=== PATIENT | female | born 1950 | race Two or more races ===

== ENCOUNTER 2017-11-11 15:30 | Emergency (ER) | payer MEDICARE, OTHER ==
[~2017-11-11] VITALS: Ht 160 cm; Wt 67.1 kg
[~2017-11-11 15:30] MED LIST: ABILIFY5 MG PO; ACTONEL150 MG PO; CREON DR 3,0001 EACH PO; CYMBALTA30 MG PO; DETROL2 MG PO; IBUPROFEN200 M2 PO; NASONEX17 GM NS; NEXIUM40 MG PO; PAMELOR10 MG PO; PREMARIN0.3 MG PO; SIMVASTATIN20 MG PO; VITAMIN B-12100 MCG PO
[2017-11-11] MEDS ORDERED: BACITRACIN15 GM TOPIC (16:03)
[2017-11-11] MEDS ORDERED: CEPHALEXIN500 MG ORAL (16:03)
[2017-11-11] MEDS ORDERED: DIPHENHYDRAMINE25 M1 ORAL (16:03)
[2017-11-11 16:10] VITALS: BP 101/65
--- NOTE | 2017-11-11 17:31 | Emergency Room Report ---
History of Present Illness General Chief Complaint: Skin Rash/Abscess Source: Patient Present Illness HPI 67-year-old female presents ED for evaluation. States that they were insect bites on her left elbow that of gotten progressively worse. Started as 2 small bumps which have gotten larger and more red over the last 2 days. Very itchy. Denies pain. Denies fevers or chills. Denies any discharge. No other aggravating relieving factors. Denies any other associated symptoms Allergies: Coded Allergies: LATEX (Verified Allergy, Unknown, 04/26/12) Patient History Past Medical History: psych hx, other - IBS Social History: Denies: smoking, alcohol use, drug use Last Menstrual Period: na Now: No Immunizations: UTD Reviewed Nursing Documentation: PMH: Agreed; PSxH: Agreed Nursing Documentation-PMH Past Medical History: No History, Except For Hx Cardiac Problems: No Hx Cancer: No Hx Gastrointestinal Problems: Yes - IBS History Of Psychiatric Problem: Yes - depression Hx Neurological Problems: Yes - arthritis, TMJ Review of Systems All Other Systems: negative except mentioned in HPI Physical Exam Vital Signs Date Time Temp Pulse Resp B/P (MAP) Pulse Ox O2 Delivery O2 Flow Rate FiO2 11/11/17 15:35 97.9 77 18 101/65 98 Room Air 97.9 Sp02 EP Interpretation: reviewed, normal General Appearance: no apparent distress, alert, GCS 15, non-toxic Head: normocephalic Eyes: bilateral eye normal inspection, bilateral eye PERRL ENT: normal ENT inspection Neck: normal inspection Respiratory: normal inspection Cardiovascular #1: normal inspection Gastrointestinal: normal inspection Rectal: deferred Genitourinary: no CVA tenderness Musculoskeletal: back normal, gait/station normal, normal range of motion, non- tender Neurologic: alert, oriented x3, responsive, motor strength/tone normal, sensory intact, speech normal Psychiatric: normal inspection Skin: other - 3x3cn area of erythema/induration to L elbow. full ROM noted. no fluctuance/discharge Lymphatic: normal inspection Medical Decision Making Diagnostic Impression: Primary Impression: Insect bite Qualified Codes: W57.XXXA - Bitten or stung by nonvenomous insect and other nonvenomous arthropods, initial encounter ER Course Hospital Course 67-year-old female presents to ED with redness, swelling to L elbow Differential diagnoses include: Cellulitis, dermatitis, insect bite, abscess Clinical course Patient placed on stretcher. After initial history, physical exam reveals an elderly female in no acute distress. On exam there is a site for mild erythema and induration to the L elbow. There is no fluctuance. There is no tenderness. Full range of motion is noted in the L elbow and there is no concern for any signs of infection to the joint. Discussed findings with patient. We will discharge on Keflex, Benadryl, bacitracin. Warm compresses. Close follow-up with PMD Diagnosis - insect bite stable and discharged to home with prescription for benedryl, bactrim, Keflex. Instructed to followup with PMD. Instructed return to ED if symptoms recur or worsen Last Vital Signs Date Time Temp Pulse Resp B/P (MAP) Pulse Ox O2 Delivery O2 Flow Rate FiO2 11/11/17 16:10 97.9 78 18 101/65 98 Room Air 97.9 Status: improved Disposition: HOME, SELF-CARE Condition: Stable Scripts Diphenhydramine Hcl* (DIPHENHYDRAMINE HCL*) 25 Mg Capsule 25 MG ORAL Q6H PRN for Itching, #30 CAP 0 Refills Prov: Gabriel Lion MD 11/11/17 Bacitracin (Bacitracin) 28.4 Gm Oint...g. 1 APPLIC TOPIC THREE TIMES A DAY, #28.4 GM Prov: Gabriel Lion MD 11/11/17 Cephalexin* (KEFLEX*) 500 Mg Capsule 500 MG ORAL EVERY 6 HOURS for 7 Days, CAP Prov: Gabriel Lion MD 11/11/17 Patient Instructions: Insect Bite, [id number] Gabriel Lion MD Nov 11, 2017 17:31
== END 2017-11-11 16:25 | disposition home or self-care (01) ==
LOC: EMR 15:59
DX: S50.362A Insect bite (nonvenomous) of left elbow, initial encounter (principal); W57.XXXA Bitten or stung by nonvenomous insect and other nonvenomous arthropods, initial encounter; Y92.9 Unspecified place or not applicable; F32.9 Major depressive disorder, single episode, unspecified; Z91.040 Latex allergy status
CPT/HCPCS: 99283

== ENCOUNTER 2017-12-05 19:27 | Emergency (ER) | payer MEDICARE, OTHER ==
[~2017-12-05] VITALS: Ht 162.6 cm; Wt 67.1 kg
[~2017-12-05 19:27] MED LIST changes: +BACITRACIN15 GM TOPIC; +CEPHALEXIN500 MG ORAL; +DIPHENHYDRAMINE25 M1 ORAL
[2017-12-05 19:50] VITALS: BP 103/65
[2017-12-05] MEDS ORDERED: BACITRACIN-P28.35 GM TP (19:56)
[2017-12-05] MEDS ORDERED: HYDROCORTISONE-30 GM TOPIC (19:56)
--- NOTE | 2017-12-05 19:57 | Emergency Room Report ---
History of Present Illness General Chief Complaint: Skin Rash/Abscess Source: Patient Present Illness HPI 67-year-old female patient presents ER complaining of bug bite on her right arm. Reports has been present for the past 2 days. Reports it is extremely pruritic. Denies taking medications. Reports she thinks she was bit by a mosquito. Reports history of bug bites in the past, previously seen in ER for bug bite on left forearm a few weeks ago, states that bug bite was worse and painful. Denies fever, chest pain, shortness of breath, vomiting. Denies other acute symptoms. Allergies: Coded Allergies: LATEX (Verified Allergy, Unknown, 04/26/12) Patient History Past Medical History: see triage record Last Menstrual Period: n/a Reviewed Nursing Documentation: PMH: Agreed; PSxH: Agreed Nursing Documentation-PMH Hx Cardiac Problems: Yes - high cholesterol Hx Cancer: No Hx Gastrointestinal Problems: Yes - IBS Hx Neurological Problems: Yes - arthritis, TMJ Review of Systems All Other Systems: negative except mentioned in HPI Physical Exam Vital Signs Date Time Temp Pulse Resp B/P (MAP) Pulse Ox O2 Delivery O2 Flow Rate FiO2 12/05/17 19:32 98.0 80 16 103/65 96 Room Air 98.1 Sp02 EP Interpretation: reviewed, normal General Appearance: well appearing, no apparent distress, alert, GCS 15, non- toxic Head: normocephalic, atraumatic Eyes: bilateral eye normal inspection, bilateral eye PERRL ENT: hearing grossly normal, normal pharynx, no angioedema, normal voice, uvula midline, moist mucus membranes Neck: full range of motion Respiratory: lungs clear, normal breath sounds, no rhonchi, no respiratory distress, no accessory muscle use, no wheezing, speaking full sentences Cardiovascular #1: regular rate, rhythm, no edema Musculoskeletal: back normal, digits/nails normal, gait/station normal, normal range of motion, non-tender Neurologic: alert, oriented x3, responsive, motor strength/tone normal, sensory intact Psychiatric: mood/affect normal Skin: other - right lateral arm proximal to elbow: 1cm erythematous papule with overlying urticaria, no surround erythema or edema, no TTP, no warmth to touch, no central clearing, no bleeding, no induration or fluctuance, no palpable mass Lymphatic: no adenopathy Medical Decision Making PA Attestation Dr. Davison is my supervising Physician whom patient management has been discussed with. Diagnostic Impression: Primary Impression: Insect bite ER Course Pt. presents to the ED c/o bug bite. Ddx considered but are not limited to atopic dermatitis, bug bite, urticaria, allergic reaction. Vital signs: are WNL, pt. is afebrile ER COURSE: Physical exam consistent with localized inflammation secondary to likely bug bite. no induration or fluctuance, no surrounding erythema or edema, low suspicion for abscess or cellulitis, do not believe patient requires oral abx at this time. Do not scratch, apply cool compresses to affected area. Take Claritin during the day and Benadryl at night for itching symptoms. Followup with PCP and request referral to derm. ER precautions given. DISCHARGE: -Rx given for hydrocortisone cream. Do not apply to face or skin creases. -Rx given for Bacitracin At this time pt. is stable for d/c to home. Patient resting comfortably, in no acute distress, nontoxic appearing. Care plan and follow up instructions have been discussed with the patient prior to discharge. Patient provided with printed patient care instructions, and any necessary prescriptions. Patient instructed to follow-up with primary care provider in 3 - 5 days. Patient questions asked and answered. Patient reports understanding and agreement to treatment plan. ER precautions given. Patient instructed to return to ER immediately for any new or worsening of symptoms including but not limited to increasing SOB, persistent fever. - Please note that this Emergency Department Report was dictated using [employer] pathology associate professor technology software, occasionally this can lead to erroneous entry secondary to interpretation by the dictation equipment. Last Vital Signs Date Time Temp Pulse Resp B/P (MAP) Pulse Ox O2 Delivery O2 Flow Rate FiO2 12/05/17 19:32 98.0 80 16 103/65 96 Room Air 98.1 Disposition: HOME, SELF-CARE Condition: Stable Scripts Hydrocortisone/Aloe Vera 1%* (HYDROCORTISONE-ALOE 1% CREAM*) Y Cr 1 APPLIC TOPIC Q6H PRN for Itching, #30 GM Prov: Wilber Roman 12/05/17 Bacitracin/Polymyxin B Sulfate (BACITRACIN-POLYMYXIN OINTMENT) 28.35 Gm Oint...g. 1 APPLIC TP BID, #28 GM Prov: Wilber Roman 12/05/17 Patient Instructions: Insect Bite, [id number] Additional Instructions: Followup with primary care provider in 3 -5 days. Request referral to dermatology as needed. Do not scratch or itch. Apply cool compresses to affected area. Wash all clothes and bedding. Take medications as directed. Do not apply topical steroid medication to face or skin creases. SE Benadryl drowsiness, do not take prior to drinking, driving, operating heavy machinery. Take Claritin during the day and Benadryl at night for itching symptoms. Patient questions asked and answered. ER precautions given, patient instructed to return to ER immediately for any new or worsening of symptoms. [facility] Wilber Roman Dec 05, 2017 19:57
[2017-12-05 20:01] VITALS: BP 103/65
== END 2017-12-05 20:01 | disposition home or self-care (01) ==
LOC: EMR 19:40
DX: S40.861A Insect bite (nonvenomous) of right upper arm, initial encounter (principal); R21 Rash and other nonspecific skin eruption; W57.XXXA Bitten or stung by nonvenomous insect and other nonvenomous arthropods, initial encounter; Z91.040 Latex allergy status
CPT/HCPCS: 99283